=== PATIENT | female | born 1970 | race American Indian/Alaskan Native ===

== ENCOUNTER 2018-04-07 06:06 | Day surgery (SDC) | payer BC ==
[~2018-04-07 06:06] MED LIST: LACTATED RINGERS 1,000 ML IV SCH; VERSED IV NR
[2018-04-07] MEDS ORDERED: NACL BACTERIOSTATIC INFILTRATI ONE (06:42)
[2018-04-07] MEDS ORDERED: ANCEF/STERILE WATER 2 GM/20 ML 2 GM/20 ML SYRINGE IV SCH (07:00)
[2018-04-07] MEDS ORDERED: DIPRIVAN 10 MG/ML IV ONE (07:15)
[2018-04-07] MEDS ORDERED: DECADRON ONE (07:15)
[2018-04-07] MEDS ORDERED: DILAUDID ONE (07:15)
[2018-04-07] MEDS ORDERED: ZEMURON IV ONE (07:15)
[2018-04-07] MEDS ORDERED: ZOFRAN ONE (07:15)
[2018-04-07] MEDS ORDERED: XYLOCAINE MPF 2% ONE (07:16)
[2018-04-07] MEDS ORDERED: TORADOL IV PRN (07:27)
[2018-04-07] MEDS ORDERED: ZOFRAN IV PRN (07:27)
[2018-04-07] MEDS ORDERED: PERCOCET 5/325 PO PRN (07:27)
[2018-04-07 07:34] LABS: Hematocrit 34.9 % (30.3-42.9); Hemoglobin 11.3 gm/dl (10.1-14.3)
[2018-04-07] MEDS ORDERED: MARCAINE 0.5% 30 ML INFILTRATI ONE (07:35)
--- NOTE | 2018-04-07 07:39 | Anesthesia Day of Surgery ---
Anesthesia Day of Surgery - Day of Surgery Patient Examined: Yes Patient H&P Reviewed: Yes Patient is NPO: Yes
--- NOTE | 2018-04-07 07:39 | Anesthesia Consultation ---
Anesthesia Consult and Med Hx Date of service: 04/07/18 - Airway Anesthetic Teeth Evaluation: Good ROM Head & Neck: Adequate Mental/Hyoid Distance: Adequate Mallampati Class: Class II Intubation Access Assessment: Good - Pulmonary Exam CTA: Yes - Cardiac Exam Cardiac Exam: RRR - Pre-Operative Health Status ASA Pre-Surgery Classification: ASA2 Proposed Anesthetic Plan: General - Pulmonary Hx Smoking: Yes (marijuana) Hx Sleep Apnea: No - Cardiovascular System Hx Hypertension: No - Central Nervous System Hx Back Pain: Yes Hx Psychiatric Problems: No - Gastrointestinal Hx Gastroesophageal Reflux Disease: Yes (with certain foods, worse after sx) - Endocrine Hx Renal Disease: No Hx End Stage Renal Disease: No Hx Liver Disease: No Hx Non-Insulin Dependent Diabetes: No Hx Thyroid Disease: No - Hematic Hx Anemia: Yes (RESOLVED 2014) Hx Sickle Cell Disease: No - Other Systems Hx Alcohol Use: Yes (socially VODKA) Hx Substance Use: Yes (marijuana SOCIALLY) Hx Cancer: No Hx Obesity: Yes (BMI 36)
[2018-04-07] MEDS ORDERED: ceFAZolin 2 GM in NACL 0.9% 100 ML IV ONE (08:00)
--- NOTE | 2018-04-07 08:44 | Discharge Summary ---
Short Stay Discharge Plan Activity: other (observe x 4 hrs then march d/c if stable. ice chips today. cl liq in am. solid diet in 48 hrs) Weight Bearing Status: Non-Weight Bearing (no lifting over 5 lbs x 1 wk. keep dressings dry x 5 days) Diet: other Wound: keep clean and dry Additional Instructions: aleve I po q 6-8 hrs prn for breakthrough pain Follow up with: ANAMARIA JUNIOR MD [Staff Physician] - 7 Days
[2018-04-07] MEDS ORDERED: MARCAINE 0.5% INFILTRATI ONE (08:53)
[2018-04-07] MEDS ORDERED: NACL 0.9% IR ONE (08:53)
[2018-04-07] MEDS ORDERED: ROBINUL ONE (08:56)
[2018-04-07] MEDS ORDERED: NEOSTIGMINE ONE (08:56)
[2018-04-07] MEDS ORDERED: NACL 0.9% 1000 ML 1,000 ML ONE (08:58)
[2018-04-07] MEDS: DILAUDID IV PRN ×4 (09:25→09:53)
[2018-04-07] MEDS ORDERED: NORCO 5/325 PO PRN (10:05)
--- NOTE | 2018-04-07 10:08 | Post Anesthesia Evaluation ---
- Post Anesthesia Evaluation Patient Participated: Yes Airway Patent: Yes Stable Respiratory Function: Yes Nausea/Vomiting: No Temp > 96.8F: Yes Pain Manageable: Yes Adequeate Hydration: Yes Anesthesia Complications: No Block Receding Appropriately: Not Applicable Patient on Ventilator: No
--- NOTE | 2018-04-07 10:23 | Operative Report ---
PREOPERATIVE DIAGNOSIS: Abdominal pain secondary to adhesions. POSTOPERATIVE DIAGNOSIS: Abdominal pain secondary to adhesions. PROCEDURE: 1. Diagnostic laparoscopy. 2. Lysis of thickened adhesions in the left lower quadrant of the abdomen, which was the site of the patient's pain. Adhesions involved the sigmoid colon, which was adherent to the peritoneal wall due to the thickened adhesions. SURGEON: Christopher Langley MD DIRECTOR OF HOME HEALTH SERVICES: Phi Sainz MD ANESTHESIA: General. ESTIMATED BLOOD LOSS: Minimal. DRAINS: No drains. COMPLICATIONS: No complications. DESCRIPTION OF PROCEDURE: The patient was taken up to the operating room, prepped and draped in usual sterile fashion. Veress needle was inserted and CO2 insufflation begun. A 5 mm trocar was then inserted and camera inserted. Two other lateral 5 mm trocars were also inserted. Inspection of the area revealed the thickened adhesions involving the sigmoid colon, adhering the colon to the peritoneal wall in the left lower quadrant as previously mentioned. The rest of the lower abdomen fortunately was fine. No other adhesions noted. Pictures were taken of the left lower quadrant as well as right lower quadrant of the abdomen. Also, pictures were taken post-adhesion lysis. The sigmoid colon was gently grasped with the Ghada and retracted downward. Harmonic scalpel as well as blunt and sharp dissection were used to slowly dissect all the adhesions until the entire sigmoid colon was freed and all the adhesions had been lysed. The area was then carefully inspected for bleeding and noted to be dry. Once again pictures of this area were taken. Diagnostic laparoscopy of the upper quadrants of the abdomen were essentially normal. The lateral 5 mm ports were then removed under direct visualization. No bleeding or oozing noted. The final 5 mm port was used to expel the CO2 and the trocar removed. The skin in all port sites was closed with subcuticular 4-0 Vicryl. A 0.5% Marcaine was infiltrated over the port site for postoperative pain relief. Steri-Strips, 2 x 2's, and Tegaderms were applied. The patient tolerated the procedure well and left the OR in stable condition. JOB# [id number] MATTHIEU/GERI
[2018-04-07 13:08] VITALS: BP 106/73
== END 2018-04-07 13:09 | disposition home or self-care (01) ==
LOC: OR 06:06
PROVIDERS: ATTEND Surgery
DX: K66.0 Peritoneal adhesions (postprocedural) (postinfection) (principal); K21.9 Gastro-esophageal reflux disease without esophagitis; E66.9 Obesity, unspecified; Z68.36 Body mass index [BMI] 36.0-36.9, adult; Z98.890 Other specified postprocedural states
CPT/HCPCS: 36415; 44180; 85014; 85018; J0690; J1100; J1170; J1885; J2250; J2405; J2704; J2710; J7030; J7120